=== PATIENT | female | born 1965 | race African-American/Black ===

== ENCOUNTER 2020-06-19 09:47 | Emergency (ER) | payer MEDICAID ==
[~2020-06-19] VITALS: Ht 157.5 cm; Wt 105.4 kg
[2020-06-19 09:52] VITALS: BP 145/85
--- NOTE | 2020-06-19 10:06 | NUR ---
[facility] PT CHANGED INTO GOWN, MONITORS IN PLACE. PA AT BS.
--- NOTE | 2020-06-19 10:44 | NUR ---
Patient given discharge instructions and they have confirmed that they understand the instructions. Patient ambulatory with steady gait.
== END 2020-06-19 10:46 | disposition home or self-care (01) ==
LOC: ED 10:19
DX: G62.9 Polyneuropathy, unspecified (principal); J45.909 Unspecified asthma, uncomplicated; M19.90 Unspecified osteoarthritis, unspecified site; G89.29 Other chronic pain
CPT/HCPCS: 82962; 99283

== ENCOUNTER 2020-07-26 15:58 | Emergency (ER) | payer MEDICAID ==
[~2020-07-26] VITALS: Ht 157.5 cm; Wt 110.0 kg
[2020-07-26 16:18] VITALS: BP 140/93
--- NOTE | 2020-07-26 16:36 | NUR ---
PA AT BS
--- NOTE | 2020-07-26 17:07 | NUR ---
Patient given discharge instructions and RX, they have confirmed that they understand the instructions. Patient ambulatory with steady gait.
== END 2020-07-26 17:09 | disposition home or self-care (01) ==
LOC: ED 17:00
DX: B35.1 Tinea unguium (principal); J45.909 Unspecified asthma, uncomplicated; M19.90 Unspecified osteoarthritis, unspecified site; G89.29 Other chronic pain; F17.210 Nicotine dependence, cigarettes, uncomplicated
CPT/HCPCS: 99283

== ENCOUNTER 2020-12-11 09:47 | Emergency (ER) | payer MEDICAID ==
[~2020-12-11] VITALS: Ht 157.5 cm; Wt 104.1 kg
[2020-12-11] MEDS ORDERED: KETOROLAC 30 MG/1 ML ONE (10:17)
--- NOTE | 2020-12-11 10:22 | NUR ---
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
[2020-12-11] MEDS ORDERED: KETOROLAC 30 MG/1 ML IM ONE (10:30)
[2020-12-11 10:32] LABS: BASOPHILS % (AUTO) 1 % (0-1); EOSINOPHILS % (AUTO) 3 % (1-7); LYMPHOCYTES % (AUTO) 36 % (22-44); MEAN CORPUSCULAR HEMOGLOBIN 29.7 pg (27.0-34.8); MEAN CORPUSCULAR HGB CONC 34.4 g/dL (32.4-35.8); MONOCYTES % (AUTO) 6 % (2-9); NEUTROPHILS % (AUTO) 55 % (42-75); PLATELET COUNT 259 x10^3/uL (130-400); RED BLOOD COUNT 4.95 x10^6/uL (3.82-5.3); RED CELL DISTRIBUTION WIDTH 16.3 % (9.6-15.2)
[2020-12-11 10:43] LABS: ALBUMIN 3.5 g/dL (3.4-5.0); ANION GAP 6 mmol/L (5-15); CALCIUM 9.1 mg/dL (8.5-10.1); CHLORIDE 107 mmol/L (98-107)
[2020-12-11 10:47] LABS: CREATININE 0.71 mg/dL (0.55-1.02); TROPONIN I < 0.015 ng/mL (0.000-0.045)
--- NOTE | 2020-12-11 11:14 | NUR ---
ALL RESULTS ARE BACK AT THIS TIME. CHART UP FOR RECHECK.
[2020-12-11 12:22] VITALS: BP 136/96
--- NOTE | 2020-12-11 12:24 | NUR ---
N/O FOR CTA. PIV PLACED. PT UPDATED ON POC
[2020-12-11] MEDS ORDERED: SODIUM CHLORIDE FLUSH 10ML SYR IVF ONE (12:30)
--- NOTE | 2020-12-11 12:55 | NUR ---
task rn note: PT LAYING BACK IN BED, RESPIRATIONS EVEN AND UNLABORED. USING CELL PHONE. NAD NOTED AT THIS TIME. AWAITING CT/READ.
--- NOTE | 2020-12-11 13:15 | NUR ---
PT AT CT.
[2020-12-11] MEDS ORDERED: OMNIPAQUE 350 MG/ML, 100ML BOTTLE ONE (13:47)
--- NOTE | 2020-12-11 14:03 | NUR ---
ERMD AT BEDSIDE TO UPDATE PT ON POC.
== END 2020-12-11 14:45 | disposition home or self-care (01) ==
LOC: ED 09:52
DX: J12.9 Viral pneumonia, unspecified (principal); J45.909 Unspecified asthma, uncomplicated; Z87.891 Personal history of nicotine dependence; R94.31 Abnormal electrocardiogram [ECG] [EKG]
CPT/HCPCS: 36415; 71045; 71275; 80048; 82040; 84484; 85025; 85379; 93005; 96372; 99285; J1885; Q9967